=== PATIENT | male | born 1940 | race Caucasian/White ===

== ENCOUNTER 2016-08-30 06:34 | Day surgery (SDC) | payer BC, OTHER ==
--- NOTE | ~2016-08-30 | EGD ---
EGD REPORT [facility] [address] [address] NAME: NOAH JUAREZ : [birth year] STATUS : REG [facility]#: [id number] AGE: 76 ADM/REG DATE : 08/30/16 MR#: [id number] REPORT SERV DATE: 08/30/16 DICTATED BY: PERCY MCNAMARA DATE: 08/30/16 REPORT STATUS : Draft [facility]ANSCRIBED BY: [facility] DATE: 08/30/16 Endoscopy Center Patient Name: Noah Juarez Date of : 1940 Attending MD: PERCY MCNAMARA MD Procedure Date No Time: 08/30/2016 Procedure: Upper GI endoscopy Indications: Iron deficiency anemia Referring MD: MILTON SWEENEY Medicines: Propofol per Anesthesia Complications: No immediate complications. Procedure: Pre-Anesthesia Assessment: - ASA Grade Assessment: III - A patient with severe systemic disease. After obtaining informed consent, the endoscope was passed under direct vision. Throughout the procedure, the patient's blood pressure, pulse, and oxygen saturations were monitored continuously. The PCF [id number] was introduced through the mouth, and advanced to the second part of duodenum. The upper GI endoscopy was accomplished without difficulty. The patient tolerated the procedure well. The upper GI endoscopy was accomplished without difficulty. The patient tolerated the procedure well. Findings: The scope was advanced up to 160 cm from the incisor. The visualized areas of the jejunum were normal. The examined esophagus was normal. Diffuse moderate inflammation characterized by erosions, erythema and friability was found in the stomach. The examined duodenum was normal. The examined jejunum was normal. Impression: - Normal esophagus. - Chronic gastritis. - Normal examined duodenum. - Normal examined jejunum. Recommendation: - Discharge patient to home (ambulatory). - Return to my office in 3 weeks. Procedure Code(s): --- Professional --- 03144, Esophagogastroduodenoscopy, flexible, transoral; diagnostic, including collection of specimen(s) by EGD REPORT [facility] [address] [place]. [address] NAME: NOAH JUAREZ : [birth year] STATUS : REG [facility]#: [id number] AGE: 76 ADM/REG DATE : 08/30/16 MR#: [id number] REPORT SERV DATE: 08/30/16 DICTATED BY: PERCY MCNAMARA DATE: 08/30/16 REPORT STATUS : Draft TRANSCRIBED BY: [employer] DATE: 08/30/16 brushing or washing, when performed (separate procedure) Diagnosis Code(s): --- Professional --- K29.50, Unspecified chronic gastritis without bleeding D50.9, Iron deficiency anemia, unspecified CPT copyright 2013 [employer]. All rights reserved. The codes documented in this report are preliminary and upon costume design teacher review may be revised to meet current compliance requirements. Percy Mcnamara MD PERCY MCNAMARA MD 08/30/2016 8:15 AM This report has been signed electronically. Number of Addenda: 0 Note Initiated On: 08/30/2016 8:03 AM Scope Withdrawal Time 0 hours 0 minutes 0 seconds [address] [place] [address]
[~2016-08-30 06:34] MED LIST: C5 PO; ELIQUIS 5 MG TAB5 MG PO; FERROUS SULF325 M1 PO; FISH-EPA1000 MG PO; FLOMAX4 PO; GLUCCHONDR PO; HCTZ12.5 PO; MULTIPLE VIT PO; NAP500 PO; NORCO1 TAB PO; OSTEO BI-FLEX1 EACH PO; PRIN20 PO; VICODINTAB PO
[2016-11-08] MEDS ORDERED: EZFE 200200 MG PO (11:33)
[2016-11-08] MEDS ORDERED: DURICEF PO (11:35)
[2016-11-08] MEDS ORDERED: FLOMAX4 PO (11:36)
[2017-01-28] MEDS ORDERED: DIL2TAB PO (10:20)
[2017-01-28] MEDS ORDERED: C2 (10:20)
== END 2016-08-30 23:59 | disposition home or self-care (01) ==
LOC: DMU 06:34
PROVIDERS: Internal Medicine Gastroenterology
PROC: 0DJ08ZZ Inspection of Upper Intestinal Tract, Via Natural or Artificial Opening Endoscopic (ICD-10-PCS; principal; 2016-08-30 08:30)
DX: D50.9 Iron deficiency anemia, unspecified (principal); K29.50 Unspecified chronic gastritis without bleeding; I48.91 Unspecified atrial fibrillation; E78.5 Hyperlipidemia, unspecified; I12.9 Hypertensive chronic kidney disease with stage 1 through stage 4 chronic kidney disease, or unspecified chronic kidney disease; N18.9 Chronic kidney disease, unspecified; Z79.891 Long term (current) use of opiate analgesic; Z79.899 Other long term (current) drug therapy; Z98.890 Other specified postprocedural states; Z96.653 Presence of artificial knee joint, bilateral; Z85.038 Personal history of other malignant neoplasm of large intestine; Z98.41 Cataract extraction status, right eye; Z98.42 Cataract extraction status, left eye